=== PATIENT | female | born 1965 | race American Indian/Alaskan Native ===

== ENCOUNTER 2019-02-03 21:14 | Emergency (ER) | payer OTHER, MEDICARE, MEDICAID ==
[2019-02-03 22:17] VITALS: BP 155/80
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
[2019-02-03] MEDS ORDERED: IBUPROFEN 600 MG TAB PO ONE (23:40)
[2019-02-03] MEDS ORDERED: ACETAMINOPHEN 500 MG TAB PO ONE (23:40)
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
== END 2019-02-04 01:18 | disposition home or self-care (01) ==
LOC: ED 21:14
DX: S43.402A Unspecified sprain of left shoulder joint, initial encounter (principal); M62.830 Muscle spasm of back; M62.838 Other muscle spasm; V89.2XXA Person injured in unspecified motor-vehicle accident, traffic, initial encounter; Y93.89 Activity, other specified; Y92.410 Unspecified street and highway as the place of occurrence of the external cause; Y99.8 Other external cause status
CPT/HCPCS: 72040; 72100